=== PATIENT | female | born 1960 | race Caucasian/White ===

== ENCOUNTER 2017-03-23 20:43 | Observation (INO) | payer OTHER ==
[~2017-03-23 20:43] MED LIST: ALPR1TAB3 PO; BUPR150T3 PO; FLUO-1 PO; HYDR-3580 PO; OMEP20TA39 PO; OXYC-68 PO; Z.0.COMMODE-3:1; Z.0.WALKERFRONT
[2017-03-23] MEDS ORDERED: ASPIRIN 81 MG CHEW TAB PO ONE (21:00)
[2017-03-23] MEDS ORDERED: SODIUM CHLORIDE 0.9% FLUSH 10 ML FLUSH IVF PRN (21:00)
[2017-03-23 21:04] VITALS: BP 123/77; PULSE 77; RESP 18; TEMP 97.6; O2SAT 97
[2017-03-23 21:06] VITALS: RESP 18; O2SAT 97
--- NOTE | 2017-03-23 21:12 | PD ---
HPI Chief Complaint: Chest Pain Time Seen by Provider: 20:54 Travel History International Travel<30 days: No Contact w/Intl Traveler<30days: No Traveled to known affect area: No History of Present Illness HPI This is a 56-year-old female who is otherwise quite healthy who presents to the emergency department with shortness of breath and chest discomfort that started 2 days ago, constant, moderate severity, radiating down the left arm, worse with exertion improved with rest. She's never had symptoms like this before. She denies any leg swelling or recent long trips. She denies diabetes, hypertension, hyperlipidemia or family history of maternal or paternal heart attack. She does have a 61-[id number]-[id number] smoking history. PFSH Past Medical History Arthritis: Yes Cancer: No Cardiovascular Problems: No Diabetes: No Endocrine: No GERD: Yes Genitourinary: No Hepatitis: No Hiatal Hernia: No Immune Disorder: No Musculoskeletal: Yes (ARTHRITIS) Neurologic: No Psychiatric: Yes (ANXIETY , DEPRESSION) Reproductive: No Respiratory: No Thyroid Disease: No Past Surgical History Gynecologic Surgery: Yes (TUBAL LIGATION) Social History Tobacco Use: Yes (47-[id number]-etrm smoking history) Substance Use: No Allergies-Medications (Allergen,Severity, Reaction): Coded Allergies: Ceftin (Unverified Adverse Reaction, Severe, "C-DIFF" , 12/26/14) Reported Meds & Prescriptions Reported Meds & Active Scripts Active Reported Prilosec (Omeprazole Magnesium) 20 Mg Tab Wellbutrin SR 12 HR (Bupropion HCl) 150 Mg Tab 150 Mg PO Q12HR Prozac (Fluoxetine HCl) 20 Mg Cap 20 Mg PO DAILY Review of Systems Except as stated in HPI: all other systems reviewed are Neg Physical Exam Narrative GENERAL:Well appearing, no acute distress SKIN: Focused skin assessment warm and dry. HEAD: Atraumatic. Normocephalic. EYES: Pupils equal and round. No injection or drainage. ENT: Moist mucous membranes NECK: Trachea midline. CARDIOVASCULAR: Regular rate and rhythm. No murmur appreciated. RESPIRATORY: Dyspnea And tachypnea, Clear to auscultation. Breath sounds equal bilaterally. GASTROINTESTINAL: Abdomen soft, non-tender, nondistended. MUSCULOSKELETAL: No obvious deformities. NEUROLOGICAL: Awake and alert. No obvious cranial nerve deficits. Moving all extremities. PSYCHIATRIC: Appropriate mood and affect; insight and judgment normal. Data Data Last Documented VS Vital Signs Date Time Temp Pulse Resp B/P Pulse Ox O2 Delivery O2 Flow Rate FiO2 03/23/17 22:51 66 16 116/67 99 03/23/17 21:04 97.6 Orders Electrocardiogram (03/23/17 20:54) Complete Blood Count With Diff (03/23/17 20:54) Comprehensive Metabolic Panel (03/23/17 20:54) Troponin I (03/23/17 20:54) Chest, Single Ap (03/23/17 20:54) Ecg Monitoring (03/23/17 20:54) Bilateral Bp Monitoring (03/23/17 20:54) Iv Access Insert/Monitor (03/23/17 20:54) Oximetry (03/23/17 20:54) Oxygen Administration (03/23/17 20:54) Aspirin Chew (Aspirin Chew) (03/23/17 21:00) D-Dimer (03/23/17 21:00) B-Type Natriuretic Peptide (03/23/17 21:54) Ct Pulmonary Angiogram (03/23/17 ) Iohexol 350 Inj (Omnipaque 350 Inj) (03/23/17 23:08) Admit Order (Ed Use Only) (03/23/17 23:22) Labs Laboratory Tests Test 03/23/17 03/23/17 21:02 21:12 D-Dimer Quantitative (PE/DVT) 0.59 MG/L FEU Sodium Level 137 MEQ/L Potassium Level 3.7 MEQ/L Chloride Level 103 MEQ/L Carbon Dioxide Level 28.8 MEQ/L Anion Gap 5 MEQ/L Blood Urea Nitrogen 16 MG/DL Creatinine 0.73 MG/DL Estimat Glomerular Filtration 83 ML/MIN Rate Random Glucose 80 MG/DL Calcium Level 8.3 MG/DL Total Bilirubin 0.2 MG/DL Aspartate Amino Transf 23 U/L (AST/SGOT) Alanine Aminotransferase 28 U/L (ALT/SGPT) Alkaline Phosphatase 56 U/L Troponin I LESS THAN 0.02 NG/ML Total Protein 6.7 GM/DL Albumin 3.1 GM/DL White Blood Count 4.9 TH/MM3 Red Blood Count 3.51 MIL/MM3 Hemoglobin 10.9 GM/DL Hematocrit 32.5 % Mean Corpuscular Volume 92.4 FL Mean Corpuscular Hemoglobin 30.9 PG Mean Corpuscular Hemoglobin 33.5 % Concent Red Cell Distribution Width 13.6 % Platelet Count 271 TH/MM3 Mean Platelet Volume 9.6 FL Neutrophils (%) (Auto) 51.9 % Lymphocytes (%) (Auto) 34.9 % Monocytes (%) (Auto) 9.5 % Eosinophils (%) (Auto) 2.6 % Basophils (%) (Auto) 1.1 % Neutrophils # (Auto) 2.5 TH/MM3 Lymphocytes # (Auto) 1.7 TH/MM3 Monocytes # (Auto) 0.5 TH/MM3 Eosinophils # (Auto) 0.1 TH/MM3 Basophils # (Auto) 0.1 TH/MM3 CBC Comment DIFF FINAL Differential Comment B-Type Natriuretic Peptide 73 PG/ML MDM Medical Decision Making Medical Screen Exam Complete: Yes Emergency Medical Condition: Yes Interpretation(s) Afebrile, no tachycardia, normotensive Mild anemia Troponin is negative D-dimer is 0.59 EKG: Normal sinus rhythm with no ST changes Last 24 hours Impressions Chest X-Ray 03/23/172053 Signed Impressions: Service Date/Time: March 21:25 - CONCLUSION: No acute cardiopulmonary disease. Alicia Hayden MD CT Angiography 03/23/17 0000 Signed Impressions: Service Date/Time: March 23:01 - CONCLUSION: 1. Severe emphysema. 2. Atherosclerosis. 3. No evidence of pulmonary embolism. Aiden Cee MD Differential Diagnosis Acute coronary syndrome, pulmonary embolism, COPD, pneumonia Narrative Course This is a 56-year-old female who presents to the emergency department with exertional dyspnea and chest discomfort in the left side of her chest. Never had pain like this before. Her EKG was reassuring and her first troponin was normal. I performed a d-dimer which was slightly elevated. CT pulmonary angiogram was obtained which demonstrate severe COPD and atherosclerosis. I don 't appreciate any wheezing on her exam but I did give her a DuoNeb and some prednisone to see if it would help her symptoms. I still think she needs to be evaluated for acute coronary syndrome and the chest pain center especially given the presence of atherosclerosis on her CT scan. Diagnosis Primary Impression: Chest pain Qualified Code: R07.9 - Chest pain, unspecified type Admitting Information Admitting Physician Requests: Slime Campbell MD Mar 23, 2017 21:12
[2017-03-23 21:41] LABS: AUTOMATED NEUTROPHIL # 2.5 TH/MM3 (1.8-7.7); BASOPHIL # 0.1 TH/MM3 (0-0.2); BASOPHIL % 1.1 % (0.0-2.0); EOSINOPHIL # 0.1 TH/MM3 (0-0.4); EOSINOPHIL % 2.6 % (0.0-4.0); HEMATOCRIT 32.5 % (35.0-46.0); HEMO FLAGS DIFF FINAL; LYMPH % 34.9 % (9.0-44.0); LYMPHOCYTE # 1.7 TH/MM3 (1.0-4.8); MEAN CELL VOLUME 92.4 FL (80.0-100.0); MEAN CORPUSCULAR HEMOGLOBIN 30.9 PG (27.0-34.0); MEAN CORPUSCULAR HGB CONC 33.5 % (32.0-36.0); MONO % 9.5 % (0.0-8.0); NEUT % 51.9 % (16.0-70.0); PLATELET COUNT 271 TH/MM3 (150-450); RED BLOOD COUNT 3.51 MIL/MM3 (4.00-5.30); RED CELL DISTRIBUTION WIDTH 13.6 % (11.6-17.2); WHITE BLOOD COUNT 4.9 TH/MM3 (4.0-11.0)
--- NOTE | 2017-03-23 21:51 | RADRPT ---
EXAM DATE/TIME: 03/23/2017 21:25 [facility] COMPARISON: No previous studies available for comparison. INDICATIONS : Patient has had chest pain and short of breath since this morning. MEDICAL HISTORY : None. SURGICAL HISTORY : Right rotator cuff ENCOUNTER: Initial ACUITY: 1 day PAIN SCORE: 7/10 LOCATION: Left chest FINDINGS: The lungs are clear without infiltrate, nodule, or mass. There is no appreciable pleural effusion fo r technique. Heart and mediastinum are unremarkable. CONCLUSION: No acute cardiopulmonary disease. Alicia Hayden MD on March 23, 2017 at 21:49 Board Certified Radiologist. This report was verified electronically.
[2017-03-23] MEDS ORDERED: PRIL20TA2 (21:56)
[2017-03-23] MEDS ORDERED: BUPR150CR PO (21:56)
[2017-03-23] MEDS ORDERED: PROZ20CA11 PO (21:56)
[2017-03-23 22:02] LABS: ANION GAP 5 MEQ/L (5-15); AST (GOT) 23 U/L (15-37); BICARBONATE 28.8 MEQ/L (21.0-32.0); BLOOD UREA NITROGEN 16 MG/DL (7-18); CHLORIDE 103 MEQ/L (98-107); GLOMERULAR FILTRATION RATE 83 ML/MIN (>89); POTASSIUM 3.7 MEQ/L (3.5-5.1); SODIUM (NA) 137 MEQ/L (136-145)
[2017-03-23 22:03] LABS: ALT (GPT) 28 U/L (10-53)
[2017-03-23 22:07] LABS: ALKALINE PHOSPHATASE 56 U/L (45-117); TOTAL BILIRUBIN ADULT 0.2 MG/DL (0.2-1.0)
[2017-03-23 22:51] VITALS: BP 116/67; PULSE 66; RESP 16; O2SAT 98; O2SAT 99
[2017-03-23] MEDS ORDERED: IOHEXOL 350 MG/ML 10 ML VIAL (for RAD DIAG) IV ONE (23:08)
--- NOTE | 2017-03-23 23:16 | RADRPT ---
EXAM DATE/TIME: 03/23/2017 23:01 [facility] COMPARISON: CHEST SINGLE AP, March 23, 2017, 21:25. INDICATIONS : Chest pain and shortness of breath. IV CONTRAST: 75 cc Omnipaque 350 (iohexol) IV RADIATION DOSE: 8.99 CTDIvol (mGy) MEDICAL HISTORY : None SURGICAL HISTORY : None. ENCOUNTER: Initial ACUITY: 1 day PAIN SCALE: 5/10 LOCATION: chest TECHNIQUE: Volumetric scanning of the chest was performed using a pulmonary embolism protocol MIP images were re constructed. Using automated exposure control and adjustment of the mA and/or kV according to patien t size, radiation dose was kept as low as reasonably achievable to obtain optimal diagnostic quality images. DICOM format image data is available electronically for review and comparison. Follow-up recommendations for incidentally detected pulmonary nodules are based at a minimum on nodul e size and patient risk factors according to Fleischner Society Guidelines. FINDINGS: Severe emphysematous changes are identified bilaterally. There is no evidence of consolidation. There no pleural effusions. No pathologically enlarged lymph nodes are identified. No evidence of pulmonar y embolism. Coronary artery calcification is identified. Osseous structures are intact. There is a pr obable bone island in the T11 level. Slight wedging of T7-T9 identified, nonacute in appearance. CONCLUSION: 1. Severe emphysema. 2. Atherosclerosis. 3. No evidence of pulmonary embolism. Aiden Cee MD on March 23, 2017 at 23:12 Board Certified Radiologist. This report was verified electronically.
[2017-03-24] VITALS (9 sets, daily range): BP systolic 104–120; BP diastolic 62–74; PULSE 61–77; RESP 17–22; TEMP 97.8–98.1; O2SAT 95–98
[2017-03-24] MEDS ORDERED: methylPREDNISolone SOD SUCC 125 MG/2 ML VIAL IV PUSH ONE
[2017-03-24] MEDS ORDERED: SODIUM CHLORIDE 0.9% FLUSH 10 ML FLUSH IV FLUSH PRN
[2017-03-24] MEDS ORDERED: RESP: ALBUTEROL 2.5 MG/IPRATROPIUM 0.5 MG NEB (SCH) NEB ONE
[2017-03-24 01:31] LABS: CREATINE KINASE 83 U/L (26-192)
[2017-03-24 04:08] LABS: CREATINE KINASE 109 U/L (26-192)
[2017-03-24 04:20] LABS: CKMB LESS THAN 0.5 NG/ML (0.5-3.6)
[2017-03-24] MEDS: SODIUM CHLORIDE 0.9% FLUSH 10 ML FLUSH IV FLUSH SCH ×2 (08:00)
[2017-03-24] MEDS ORDERED: oxyCODONE/ACETAMINOPHEN 5 MG/325 MG TAB PO PRN (08:30)
[2017-03-24] MEDS ORDERED: FLUoxetine HCL 20 MG CAP PO SCH (09:00)
[2017-03-24] MEDS ORDERED: buPROPion HCL 150 MG SUSTAINED RELEASE TAB PO SCH (09:00)
[2017-03-24] MEDS ORDERED: REGADENOSON INJ 0.4 MG/5 ML SYR ONE (09:42)
--- NOTE | 2017-03-24 09:50 | HHI.HP ---
HPI Primary Care Physician Maria Dolores Ortiz Jr, MD Chief Complaint Chest pain History of Present Illness This is a 56-year-old female that presents to the ED via private vehicle complaining of chest pain. Patient states she developed a discomfort about 2 days ago. It was sharp and she had 2 episodes. They're short-lived. I reassured morning reoccurred and is still there at this time. She has found that it helps a little bit when she puts pressure on the left chest wall. Nothing seems to worsen. Denies social shortness breath, nausea, or diaphoresis. Denies recent illness. Denies recent travel. Review of Systems General: Patient denies fevers, chills recent, and recent travel HEENT: Patient denies headache, sore throat, difficulty swallowing. Cardiovascular: Has the chest discomfort as mentioned above. Denies sensation of heart beating rapidly or irregularly. No syncope. Denies diaphoresis. Respiratory: Denies shortness of breath or inspirational chest discomfort. Denies coughing wheezing or hemoptysis. GI: Patient denies nausea, vomiting, diarrhea, abdominal pain, bloody stools. Musculoskeletal: Patient denies joint pain or edema. Denies calf pain or edema. Neurovascular: Patient denies numbness, tingling, weakness in extremities. Denies headache. Endocrine: Denies polyuria and polydipsia. Hematologic: Denies easy bruising. Skin: Denies rash or itching. Past Family Social History Allergies: Coded Allergies: Ceftin (Unverified Adverse Reaction, Severe, "C-DIFF" , 12/26/14) Past Medical History Depression, GERD, chronic pain, past tobacco abuse but quit 2 to years ago. Denies hypertension, hyperlipidemia, diabetes, and known CAD. Past Surgical History Patient had a cardiac catheterization in 2004 which revealed normal coronaries. Tubal ligation. Reported Medications Reported Meds & Active Scripts Active Reported Prilosec (Omeprazole Magnesium) 20 Mg Tab Wellbutrin SR 12 HR (Bupropion HCl) 150 Mg Tab 150 Mg PO Q12HR Prozac (Fluoxetine HCl) 20 Mg Cap 20 Mg PO DAILY Active Ordered Medications Current Medications Medications (Trade) Dose Ordered Sig/Hubert Route Start Time Stop Time Status Last Admin (NS Flush) 2 ml UNSCH PRN IV FLUSH 03/24/17 00:00 (NS Flush) 2 ml BID IV FLUSH 03/24/17 00:00 03/24/17 08:00 (Wellbutrin Sr) 150 mg Q12HR PO 03/24/17 09:00 (PROzac) 20 mg DAILY PO 03/24/17 09:00 (Percocet 5-325 Mg) 1 tab Q4H PRN PO 03/24/17 08:30 Family History Denies family history of CAD. Social History Patient quit smoking 2-1/2 years ago but has a 32-mtgy-styj history. Denies alcohol or illicit drug use. Physical Exam Vital Signs Vital Signs Date Time Temp Pulse Resp B/P Pulse Ox O2 Delivery O2 Flow Rate FiO2 03/24/17 08:04 97.9 67 17 113/67 95 03/24/17 08:00 73 03/24/17 04:44 97.8 61 18 104/62 97 03/24/17 03:47 67 03/24/17 01:00 70 03/24/17 00:35 96 03/24/17 00:31 67 18 120/74 98 03/24/17 00:00 98.0 77 18 112/64 97 03/23/17 22:51 66 16 116/67 99 03/23/17 21:06 78 18 96 03/23/17 21:06 18 97 03/23/17 21:04 97.6 77 18 123/77 97 Physical Exam GENERAL: This is a well-nourished, well-developed patient, in no apparent distress. Patient speaks in clear complete sentences. Patient is pleasant. HEENT: Head is atraumatic and normocephalic. Neck is supple without lymphadenopathy and trachea is midline. No JVD or carotid bruits. CARDIOVASCULAR: Regular rate and rhythm without murmurs, gallops, or rubs. RESPIRATORY: Clear to auscultation. Breath sounds equal bilaterally. No wheezes , rales, or rhonchi. Chest wall is nontender. No use of accessory muscles. GASTROINTESTINAL: Abdomen is nontender, nondistended. Abdomen soft. No obvious pulsatile mass or bruit. No CVA tenderness. Strong femoral pulses bilaterally. Normal bowel sounds in all quadrants. MUSCULOSKELETAL: Patient is moving upper and lower extremities freely. No calf tenderness or edema, no Homans sign. Strong pulses in upper and lower extremities. NEUROLOGICAL: Patient is alert and oriented. Cranial nerves 2-12 are grossly intact. No focal deficits and speech is clear. SKIN: No rash and turgor is normal. Laboratory Laboratory Tests Test 03/23/17 03/23/17 03/24/17 03/24/17 21:02 21:12 00:20 02:52 D-Dimer Quantitative (PE/DVT) 0.59 Sodium Level 137 Potassium Level 3.7 Chloride Level 103 Carbon Dioxide Level 28.8 Anion Gap 5 Blood Urea Nitrogen 16 Creatinine 0.73 Estimat Glomerular Filtration 83 Rate Random Glucose 80 Calcium Level 8.3 Total Bilirubin 0.2 Aspartate Amino Transf 23 (AST/SGOT) Alanine Aminotransferase 28 (ALT/SGPT) Alkaline Phosphatase 56 Troponin I LESS THAN 0.02 LESS THAN 0.02 LESS THAN 0.02 Total Protein 6.7 Albumin 3.1 White Blood Count 4.9 Red Blood Count 3.51 Hemoglobin 10.9 Hematocrit 32.5 Mean Corpuscular Volume 92.4 Mean Corpuscular Hemoglobin 30.9 Mean Corpuscular Hemoglobin 33.5 Concent Red Cell Distribution Width 13.6 Platelet Count 271 Mean Platelet Volume 9.6 Neutrophils (%) (Auto) 51.9 Lymphocytes (%) (Auto) 34.9 Monocytes (%) (Auto) 9.5 Eosinophils (%) (Auto) 2.6 Basophils (%) (Auto) 1.1 Neutrophils # (Auto) 2.5 Lymphocytes # (Auto) 1.7 Monocytes # (Auto) 0.5 Eosinophils # (Auto) 0.1 Basophils # (Auto) 0.1 CBC Comment DIFF FINAL Differential Comment B-Type Natriuretic Peptide 73 Total Creatine Kinase 83 109 Creatine Kinase MB LESS THAN 0.5 Result Diagram: 03/23/17211103/23/172101 Imaging Last 48 hours Impressions Chest X-Ray 03/23/172053 Signed Impressions: Service Date/Time: March 21:25 - CONCLUSION: No acute cardiopulmonary disease. Alicia Hayden MD CT Angiography 03/23/17 0000 Signed Impressions: Service Date/Time: March 23:01 - CONCLUSION: 1. Severe emphysema. 2. Atherosclerosis. 3. No evidence of pulmonary embolism. Aiden Cee MD Course EKGs have sinus rhythm without significant ST segment depressions or elevations. Assessment and Plan Assessment and Plan * Chest pain: Patient has had serial cardiac enzymes and EKGs for ruling out purposes. She was seen by Dr. Valente of cardiology in the chest pain center and will undergo a Lexiscan. She will be discharged home if the stress test was nonischemic with instructions follow-up with local primary care physician. * Depression: Continue current medication. * GERD: Continue her medication. * Chronic hip pain: Continue current medication. Patient is stable at this time. She is agreeable to this plan. Stanley Rodriguez Mar 24, 2017 09:50
--- NOTE | 2017-03-24 12:10 | RADRPT ---
EXAM DATE/TIME: 03/24/2017 09:12 [facility] COMPARISON: CHEST SINGLE AP, March 23, 2017, 21:25. INDICATIONS : Mid chest pain with shortness of breath for two days. Angina. DOSE: 26.8 mCi Tc99m Myoview at stress. 8.1 mCi Tc99m Myoview at rest. 0.4 mg Lexiscan STRESS SYMPTOMS: Dyspnea, stomach pain and headache. EJECTION FRACTION: 48% MEDICAL HISTORY : Gastroesophageal reflux disease. SURGICAL HISTORY : Tubal ligation. ENCOUNTER: Initial ACUITY: 2 days PAIN SCALE: 5/10 LOCATION: Midsternal chest TECHNIQUE: The patient underwent pharmacologic stress with infusion of prescribed dose. Continuous ECG tracing was monitored during stress. Gated SPECT imaging was performed after stress and conventional SPECT i maging was performed at rest. The examination was performed on a SPECT/CT scanner, both attenuation and non-corrected datasets were reviewed. FINDINGS: DISTRIBUTION: The maximum perfused segment at stress is in the anterolateral wall. PERFUSION STUDY: The pattern of perfusion at stress demonstrates breast attenuation artifact overlapping the anterior wall without any significant ischemia. GATED STUDY: There is intact wall motion and thickening without hypokinetic or dyskinetic segments. CONCLUSION: No appreciable ischemia. RISK CATEGORY: Low (<1% Annual Mortality Rate) Alicia Hayden MD on March 24, 2017 at 12:07 Board Certified Radiologist. This report was verified electronically.
--- NOTE | 2017-03-24 12:41 | HHI.DCPOC ---
Discharge Care Plan Diagnosis: (1) Chest pain Goals to Promote Your Health * To prevent worsening of your condition and complications * To maintain your health at the optimal level Directions to Meet Your Goals Take your medications as prescribed Follow your dietary instruction Follow activity as directed Keep your appointments as scheduled Take your immunizations and boosters as scheduled If your symptoms worsen call your PCP, if no PCP go to Urgent Care Center or Emergency Room Smoking is Dangerous to Your Health. Avoid second hand smoke Call the 24-hour hour crisis hotline for domestic abuse at Stanley Rodriguez Mar 24, 2017 12:41
--- NOTE | 2017-03-24 15:35 | EKG ---
Date Performed: 03/24/2017 Time Performed: 03:36:13 PTAGE: 56 years EKG: Sinus rhythm NORMAL ECG PREVIOUS TRACING : 03/24/2017 00.16 Since previous tracing, no significant change noted DOCTOR: Krystian Valente Interpretating Date/Time 03/24/2017 15:35:13
--- NOTE | 2017-03-24 15:36 | EKG ---
Date Performed: 03/24/2017 Time Performed: 00:16:00 PTAGE: 56 years EKG: Sinus rhythm WITH OCCASIONAL VENTRICULAR PREMATURE COMPLEXES BORDERLINE ECG PREVIOUS TRACING : 12/26/2014 08.39 Since previous tracing, no significant change noted DOCTOR: Krystian Valente Interpretating Date/Time 03/24/2017 15:35:34
--- NOTE | 2017-03-24 15:36 | EKG ---
Date Performed: 03/23/2017 Time Performed: 20:48:02 PTAGE: 56 years EKG: Sinus rhythm NORMAL ECG INTERPRETATION BASED ON A DEFAULT AGE OF 41 YEARS NO PREVIOUS TRACING DOCTOR: Krystian Valente Interpretating Date/Time 03/24/2017 15:36:26
--- NOTE | 2017-03-24 15:40 | TR ---
Date Performed: 03/24/2017 Time Performed: 09:58:20 DOCTOR: Krystian Valente DRUG LIST: CLINICAL HISTORY: REASON FOR TEST: CHEST PAIN REASON FOR ENDING: OBSERVATION: CONCLUSION: Lexiscan stress test was performed under standard four minute protocol. Radionuclid e was injected one minute prior to ending the test. No electrocardiographic abormalities were present to suggest ischemia. Nuclear imaging and interpretation are pending. COMMENTS:
== END 2017-03-24 13:48 | disposition home or self-care (01) ==
LOC: NEPC 20:43 → NEDA 23:23 → NEPFCDU 03-24 00:44
PROVIDERS: ADMIT Internal Medicine Cardiovascular Disease; ATTEND Internal Medicine Cardiovascular Disease
DX: R07.9 Chest pain, unspecified (principal); F32.9 Major depressive disorder, single episode, unspecified; K21.9 Gastro-esophageal reflux disease without esophagitis; J43.9 Emphysema, unspecified; M25.559 Pain in unspecified hip; G89.29 Other chronic pain; Z87.891 Personal history of nicotine dependence; Z79.899 Other long term (current) drug therapy
CPT/HCPCS: 71010; 71275; 78452; 80053; 82550; 82552; 83880; 84484; 85025; 85379; 93005; 93017; 94664; 99285; A9502; G0378; J2785; J2930; Q9967